=== PATIENT | female | born 2005 | race Caucasian/White ===

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

== ENCOUNTER 2025-01-24 15:19 | Emergency (ER) | payer OTHER, SELFPAY ==
[2025-01-24 15:27] VITALS: BP 117/81; PULSE 97; RESP 18; TEMP 36.7; O2SAT 100
--- NOTE | 2025-01-24 15:27 | ED_ITS ---
HPI - Female Genitourinary General Chief complaint: Urogenital-Female Stated complaint: UTI SYMPTOMS Source: patient Mode of arrival: ambulatory Limitations: no limitations History of Present Illness HPI Narrative: patient is a pleasant 19-year-old female presenting with complaint of UTI symptoms. Symptoms began today and include hematuria, dysuria, urinary frequency, urinary urgency. Denies history of similar. Denies concern for STI or . No treatment initiated prior to arrival. No additional complaints. Related Data Home Medications ?Medication ?Instructions ?Recorded ?Confirmed ?Last Taken ?Type escitalopram oxalate 10 mg tablet 10 mg PO DAILY 04/08/23 04/08/23 Unknown History norethindrone 1.5 mg-ethinyl 1 tablet PO DAILY 04/08/23 04/08/23 Unknown History estradiol 30 mcg(21)/iron 75 mg(7) tablet (Sandra Fe 1.5/30 (28)) Allergies Allergy/AdvReac Type Severity Reaction Status Date / Time No Known Allergies Allergy Verified 01/24/25 15:34 Review of Systems Review of Systems: CONSTITUTIONAL: Denies body aches, fever, chills, or sweats. EYES: Denies visual changes, redness, or discharge. ENT: Denies rhinorrhea, congestion, sore throat, or otalgia. CARDIOVASCULAR: Denies chest pain, palpitations, or edema. RESPIRATORY: Denies cough or dyspnea. GASTROINTESTINAL: Denies abdominal pain, nausea, vomiting, or diarrhea. GENITOURINARY: Denies itching, discharge SKIN: Denies rash, itching, or wounds. MUSCULOSKELETAL: Denies back pain, joint pain, or myalgia. NEUROLOGIC: Denies headache, numbness, tingling, or weakness. PSYCH: Denies depression or anxiety. All systems reviewed & are unremarkable except as noted in HPI and below Genitourinary: Genitourinary: Denies abnormal vaginal bleeding, Denies hematuria, Denies genital lesions, Denies pelvic pain, Denies flank pain, Denies urinary incontinence and Denies vaginal discharge PMFSH Past Medical History Medical History No pertinent past medical history Exam Narrative: GENERAL: Well-appearing, well-nourished, and in no acute distress. HEAD: Normocephalic, atraumatic. EYES: EOMI. No redness or drainage. Conjunctivae normal. ENT: Mucous membranes pink and moist. NECK: Normal AROM. Supple. CHEST: No respiratory distress. HEART: Regular rate Normal peripheral pulses. ABDOMEN: Soft, nontender, nondistended, normal active bowel sounds.No CVAT MUSCULOSKELETAL: No bony tenderness. EXTREMITIES: Normal range of motion. No edema. SKIN: Warm, dry, no rash. Capillary refill normal. Normal skin turgor. NEURO: No focal deficits. Alert and oriented x3. Gait steady. PSYCH: Normal affect. No signs of depression or anxiety. Course Course Emergency Course: Please be advised this is a medical document. It is intended for [id number] communication. It is written in medical language and may contain unfamiliar abbreviations or verbiage. Medical documents are intended to carry relevant information, facts as evident, and the clinical opinion of the practitioner at the time of the encounter. This dictation may have been done utilizing a voice recognition system. Attempts have been made to correct errors. However, there may be uncorrected grammatical, spelling, and recognition errors present. Level of Care: Express Care Visit Vital Signs Vital signs: Vital Signs Temperature 98.1 F 01/24/25 15:27 Pulse Rate 97 01/24/25 15:27 Respiratory Rate 18 01/24/25 15:27 Blood Pressure 117/81 01/24/25 15:27 Pulse Oximetry 100 01/24/25 15:27 Temperature 98.1 F 01/24/25 15:27 Pulse Rate 97 01/24/25 15:27 Respiratory Rate 18 01/24/25 15:27 Blood Pressure 117/81 01/24/25 15:27 Pulse Oximetry 100 01/24/25 15:27 MDM - Female Genitourinary Differential Diagnosis Differential diagnosis: Likely urinary tract infection, bacterial vaginosis, trichomoniasis, cervicitis, ovarian cyst, vaginitis, ruptured ovarian cyst, cystitis and dysmenorrhea Medical Records Attestation: I reviewed the patient's medical records. Lab Data Attestation: I reviewed the patient's lab results. Lab results narrative: abnormal Labs: Lab Results 01/24/25 Range/Units 15:33 POC Urine Color Yellow POC Urine Clarity Cloudy POC Urine pH 6.0 POC Ur Specif [place] 1.030 POC Urine Protein 3+ (Negative) POC Ur Glucose (UA) Negative (Negative) POC Urine Ketones Trace (Negative) POC Urine Blood 3+ (Negative) POC Urine Nitrite Positive (Negative) POC Urine Bilirubin 1+ (Negative) POC Urine Urobilinogen 1.0 POC U Leukocyte Esteras 1+ (Negative) Discharge Plan Discharge Clinical Impression: Dysuria Patient Disposition: Home Condition: Stable Instructions: Antibiotic Form, Dysuria (ED) Additional Instructions: Go straight to ER should your symptoms become worse or should any new symptoms develop Patient Language: Slovak Prescriptions: New nitrofurantoin monohyd/m-cryst [Macrobid] 100 mg capsule 100 mg PO Q12H 5 Days Qty: 10 0RF Rx Instructions: must administer with a meal/food No Action norethindrone-e.estradiol-iron [Sandra Fe 1.5/30 (28)] 1.5 mg-30 mcg (21)/75 mg (7) tablet 1 tablet PO DAILY escitalopram oxalate 10 mg tablet 10 mg PO DAILY Follow-up/Referrals: Cheng,Jesus Manuel [Other] - 01/25/25 Time of Disposition: 15:29
[2025-01-24 15:36] LABS: EDUAAPPEAR Cloudy; EDUABILI 1+ (Negative); EDUABLOOD 3+ (Negative); EDUACOLOR1 Yellow; EDUAGLUCOSE Negative (Negative); EDUAKETONE Trace (Negative); EDUALEUKO 1+ (Negative); EDUANITRATE Positive (Negative); EDUAPROTEIN 3+ (Negative)
== END 2025-01-24 15:43 | disposition home or self-care (01) ==
PROVIDERS: Emergency Provider Registered Nurse
DX: R30.0 Dysuria (principal)
CPT/HCPCS: 81003; 87077; 87086; 87186; 99213; G0463